=== PATIENT | female | born 1990 | race Two or more races ===

== ENCOUNTER → 2022-10-06 | Outpatient (REF) | LOC: M EMP 14:14 | PROVIDERS: ATTEND Family Medicine | DX: Z20.822 Contact with and (suspected) exposure to COVID-19 (principal) ==

== ENCOUNTER 2023-02-15 02:44 | Emergency (ER) | payer OTHER ==
[~2023-02-15] VITALS: Ht 157.5 cm; Wt 92.2 kg
[2023-02-15 03:27] LABS: HEMATOCRIT 38.3 % (36.0-47.0); HEMOGLOBIN 12.5 g/dl (12.0-15.5); MEAN CORPUSCULAR HEMOGLOBIN 27.2 pg (27.0-33.0); MEAN CORPUSCULAR HGB CONC 32.6 g/dl (32.0-36.5); MEAN CORPUSCULAR VOLUME 83.4 fl (80.0-96.0); PLATELET COUNT, AUTOMATED 272 10^3/uL (150-450); RED BLOOD COUNT 4.59 10^6/uL (4.00-5.40); WHITE BLOOD COUNT 7.1 10^3/uL (4.0-10.0)
[2023-02-15 03:44] LABS: AMPHETAMINES LEVEL URINE NEGATIVE (NEGATIVE); BARBITURATES URINE NEGATIVE (NEGATIVE); BENZODIAZEPINES URINE NEGATIVE (NEGATIVE)
[2023-02-15 03:45] LABS: CANNABINOIDS URINE NEGATIVE (NEGATIVE); COCAINE METABOLITE URINE NEGATIVE (NEGATIVE); METHADONE URINE NEGATIVE (NEGATIVE); OPIATES URINE NEGATIVE (NEGATIVE); PHENCYCLIDINE URINE NEGATIVE (NEGATIVE)
[2023-02-15 03:49] LABS: ACETAMINOPHEN LEVEL < 2.0 UG/ML (10.0-20.0); ALBUMIN 3.6 G/DL (3.2-5.2); ALKALINE PHOSPHATASE 83 U/L (46-116); ALT/SGPT 68 U/L (7.0-40); AST/SGOT 123 U/L (<34); BILIRUBIN,DIRECT < 0.1 MG/DL (<0.4); BILIRUBIN,TOTAL 0.3 MG/DL (0.3-1.2); BLOOD UREA NITROGEN 8 MG/DL (9-23); CALCIUM LEVEL 8.2 MG/DL (8.5-10.1); CARBON DIOXIDE LEVEL 20 MMOL/L (20-31); CHLORIDE LEVEL 111 MMOL/L (98-107); CREATININE FOR GFR 0.61 MG/DL (0.55-1.30); GLOMERULAR FILTRATION RATE > 60.0 (>60); GLUCOSE, FASTING 95 MG/DL (60-100); POTASSIUM SERUM 3.6 MMOL/L (3.5-5.1); SALICYLATE LEVEL < 3.0 MG/DL (<30); SODIUM LEVEL 142 MMOL/L (136-145); TOTAL PROTEIN 6.7 G/DL (5.7-8.2)
[2023-02-15 03:51] LABS: THYROID STIMULATING HORMONE 1.252 uIU/ML (0.55-4.78)
[2023-02-15 04:03] LABS: HCG, SERUM QUALITATIVE NEGATIVE (NEGATIVE)
[2023-02-15 06:17] VITALS: BP 112/56; TEMP 96.3; O2SAT 99
== END 2023-02-15 11:49 | disposition home or self-care (01) ==
LOC: M ED 02:44
DX: F10.129 Alcohol abuse with intoxication, unspecified (principal); F32.A Depression, unspecified; F43.10 Post-traumatic stress disorder, unspecified; F41.9 Anxiety disorder, unspecified; F17.290 Nicotine dependence, other tobacco product, uncomplicated; Z88.0 Allergy status to penicillin; Z88.8 Allergy status to other drugs, medicaments and biological substances

== ENCOUNTER 2023-11-24 09:20 | Emergency (ER) | payer OTHER ==
[~2023-11-24] VITALS: Ht 157.5 cm; Wt 90.7 kg
[2023-11-24] MEDS ORDERED: ALPR0.25 (09:41)
[2023-11-24] MEDS ORDERED: TRAZ-252 (09:41)
[2023-11-24] MEDS ORDERED: DEXTROAMP-AMPHETAMIN (09:41)
[2023-11-24] MEDS ORDERED: SERT50TA29 (09:41)
[2023-11-24] MEDS ORDERED: ACAM0.05 (09:41)
[2023-11-24] MEDS ORDERED: NALT50TA4 (09:41)
[2023-11-24 10:36] LABS: HEMATOCRIT 41.9 % (36.0-47.0); HEMOGLOBIN 14.1 g/dl (12.0-15.5); MEAN CORPUSCULAR HEMOGLOBIN 30.4 pg (27.0-33.0); MEAN CORPUSCULAR HGB CONC 33.7 g/dl (32.0-36.5); MEAN CORPUSCULAR VOLUME 90.3 fl (80.0-96.0); PLATELET COUNT, AUTOMATED 278 10^3/uL (150-450); RED BLOOD COUNT 4.64 10^6/uL (4.00-5.40); WHITE BLOOD COUNT 8.2 10^3/uL (4.0-10.0)
[2023-11-24 10:57] LABS: LIPASE 27 U/L (12-53)
[2023-11-24 10:59] LABS: ALBUMIN 3.5 G/DL (3.2-5.2); ALKALINE PHOSPHATASE 70 U/L (46-116); ALT/SGPT 21 U/L (7.0-40); AST/SGOT 16 U/L (<34); BILIRUBIN,DIRECT 0.2 MG/DL (<0.4); BILIRUBIN,TOTAL 0.6 MG/DL (0.3-1.2); BLOOD UREA NITROGEN 9 MG/DL (9-23); CALCIUM LEVEL 8.6 MG/DL (8.5-10.1); CARBON DIOXIDE LEVEL 25 MMOL/L (20-31); CHLORIDE LEVEL 107 MMOL/L (98-107); CREATININE FOR GFR 0.54 MG/DL (0.55-1.30); GLOMERULAR FILTRATION RATE > 60.0 (>60); GLUCOSE, FASTING 79 MG/DL (60-100); POTASSIUM SERUM 3.9 MMOL/L (3.5-5.1); SODIUM LEVEL 137 MMOL/L (136-145); TOTAL PROTEIN 6.7 G/DL (5.7-8.2)
[2023-11-24 11:13] LABS: HCG, SERUM QUANTITATIVE 20615.7 MIU/ML (<4.2)
[2023-11-24 11:15] LABS: APPEARANCE, URINE HAZY (CLEAR); BACTERIA, URINE AUTO NEGATIVE (NEGATIVE); BILIRUBIN, URINE AUTO NEGATIVE (NEGATIVE); BLOOD, URINE BLOOD NEGATIVE (NEGATIVE); COLOR, URINE AMBER (YELLOW); GLUCOSE, URINE (UA) AUTO NEGATIVE (NEGATIVE); KETONE, URINE AUTO TRACE mg/dL (NEGATIVE); LEUKOCYTE ESTERASE, URINE AUTO TRACE (NEGATIVE); MUCUS, URINE LARGE (NEGATIVE); NITRITE, URINE AUTO NEGATIVE (NEGATIVE); PROTEIN, URINE AUTO 1+ mg/dL (NEGATIVE); RBC, URINE AUTO 0 /HPF (0-3); SPECIFIC GRAVITY URINE AUTO 1.031 (1.002-1.035); SQUAMOUS EPITHELIAL CELL UR AU 3 /HPF (0-6); WBC, URINE AUTO 5 /HPF (0-3)
[2023-11-24] MEDS: ACETAMINOPHEN 325 MG TAB PO ONE (11:30)
[2023-11-24 12:54] VITALS: BP 122/78; TEMP 97; O2SAT 99
== END 2023-11-24 13:25 | disposition home or self-care (01) ==
LOC: M ED 09:20
DX: O20.8 Other hemorrhage in early pregnancy (principal); Z3A.01 Less than 8 weeks gestation of pregnancy; Z87.59 Personal history of other complications of pregnancy, childbirth and the puerperium; O99.841 Bariatric surgery status complicating pregnancy, first trimester; O34.81 Maternal care for other abnormalities of pelvic organs, first trimester; Z88.0 Allergy status to penicillin

== ENCOUNTER 2023-12-07 00:44 | Emergency (ER) | payer OTHER ==
[~2023-12-07] VITALS: Ht 157.5 cm; Wt 90.9 kg
[~2023-12-07 00:44] MED LIST: ACAM0.05; ALPR0.25; DEXTROAMP-AMPHETAMIN; NALT50TA4; SERT50TA29; TRAZ-252
[2023-12-07 01:18] LABS: BASO % 0.3 % (0.0-1.0); EOS % 0.1 % (0.0-3.0); HEMOGLOBIN 14.1 g/dl (12.0-15.5); LYMPH # 1.9 10^3/uL (1.5-5.0); MEAN CORPUSCULAR HEMOGLOBIN 31.1 pg (27.0-33.0); MEAN CORPUSCULAR HGB CONC 34.4 g/dl (32.0-36.5); MEAN CORPUSCULAR VOLUME 90.5 fl (80.0-96.0); MONO # 0.5 10^3/uL (0.0-0.8); MONO % 4.3 % (2.0-8.0); NEUTROPHILS # 9.2 10^3/uL (1.5-8.5); NEUTROPHILS % 78.8 % (36.0-66.0); PLATELET COUNT, AUTOMATED 207 10^3/uL (150-450); RED BLOOD COUNT 4.53 10^6/uL (4.00-5.40); WHITE BLOOD COUNT 11.7 10^3/uL (4.0-10.0)
[2023-12-07 01:30] VITALS: TEMP 97.8
[2023-12-07 01:35] LABS: INR 1.12
[2023-12-07 01:44] LABS: LIPASE 32 U/L (12-53)
[2023-12-07 01:47] LABS: ALBUMIN 3.4 G/DL (3.2-5.2); ALKALINE PHOSPHATASE 64 U/L (46-116); ALT/SGPT 20 U/L (7.0-40); AST/SGOT 33 U/L (<34); BILIRUBIN,DIRECT < 0.1 MG/DL (<0.4); BILIRUBIN,TOTAL 0.3 MG/DL (0.3-1.2); BLOOD UREA NITROGEN 9 MG/DL (9-23); CALCIUM LEVEL 8.9 MG/DL (8.5-10.1); CARBON DIOXIDE LEVEL 23 MMOL/L (20-31); CHLORIDE LEVEL 103 MMOL/L (98-107); CK-MB VALUE MASS < 1.0 NG/ML (<3.6); CREATININE FOR GFR 0.49 MG/DL (0.55-1.30); GLOMERULAR FILTRATION RATE > 60.0 (>60); GLUCOSE, FASTING 128 MG/DL (60-100); POTASSIUM SERUM 3.5 MMOL/L (3.5-5.1); SODIUM LEVEL 136 MMOL/L (136-145); TOTAL PROTEIN 6.7 G/DL (5.7-8.2)
[2023-12-07 01:54] LABS: RSV AMPLIFICATION NEGATIVE (NEGATIVE)
[2023-12-07 02:12] LABS: CPK CREATINE PHOSPHOKINASE 113 U/L (34-145); HCG, SERUM QUANTITATIVE 121662.1 MIU/ML (<4.2); MB/CK RELATIVE INDEX 0.88 (< OR =4)
[2023-12-07 03:00] VITALS: BP 97/66; O2SAT 99
== END 2023-12-07 03:27 | disposition home or self-care (01) ==
LOC: M ED 00:44
DX: O34.81 Maternal care for other abnormalities of pelvic organs, first trimester (principal); N83.291 Other ovarian cyst, right side; O26.891 Other specified pregnancy related conditions, first trimester; M62.830 Muscle spasm of back; I45.10 Unspecified right bundle-branch block; J45.909 Unspecified asthma, uncomplicated; F90.9 Attention-deficit hyperactivity disorder, unspecified type; Z98.84 Bariatric surgery status; Z88.1 Allergy status to other antibiotic agents; Z79.899 Other long term (current) drug therapy; Z3A.01 Less than 8 weeks gestation of pregnancy

== ENCOUNTER 2023-12-18 10:52 | Emergency (ER) | payer OTHER ==
[~2023-12-18] VITALS: Ht 157.5 cm; Wt 90.0 kg
[2023-12-18] MEDS ORDERED: APAP325T4 PO (11:17)
[2023-12-18] MEDS ORDERED: VITACAP37 PO (11:17)
[2023-12-18] MEDS ORDERED: CLEO150C PO (11:17)
[2023-12-18] MEDS ORDERED: TOLN1CRE9 TOP (11:17)
[2023-12-18] MEDS ORDERED: TRAZ-252 PO (11:17)
[2023-12-18] MEDS ORDERED: FERR325T3 PO (11:17)
[2023-12-18] MEDS ORDERED: FOLI1TAB11 PO (11:17)
[2023-12-18] MEDS ORDERED: PROA1AER2 INH (11:17)
[2023-12-18] MEDS ORDERED: FLON1SPR NARES (11:17)
[2023-12-18] MEDS ORDERED: ARIP1TAB PO (11:17)
[2023-12-18] MEDS ORDERED: HYDR-3363 PO (11:17)
[2023-12-18 12:19] LABS: BASO % 0.3 % (0.0-1.0); EOS % 0.2 % (0.0-3.0); HEMATOCRIT 42.8 % (36.0-47.0); HEMOGLOBIN 14.4 g/dl (12.0-15.5); LYMPH # 1.4 10^3/uL (1.5-5.0); LYMPH % 15.8 % (24.0-44.0); MEAN CORPUSCULAR HEMOGLOBIN 30.3 pg (27.0-33.0); MEAN CORPUSCULAR HGB CONC 33.6 g/dl (32.0-36.5); MEAN CORPUSCULAR VOLUME 90.1 fl (80.0-96.0); MONO # 0.4 10^3/uL (0.0-0.8); MONO % 3.9 % (2.0-8.0); NEUTROPHILS # 7.1 10^3/uL (1.5-8.5); NEUTROPHILS % 79.5 % (36.0-66.0); PLATELET COUNT, AUTOMATED 274 10^3/uL (150-450); RED BLOOD COUNT 4.75 10^6/uL (4.00-5.40); WHITE BLOOD COUNT 8.9 10^3/uL (4.0-10.0)
[2023-12-18 12:41] LABS: BLOOD UREA NITROGEN 9 MG/DL (9-23); CALCIUM LEVEL 9.8 MG/DL (8.5-10.1); CARBON DIOXIDE LEVEL 24 MMOL/L (20-31); CHLORIDE LEVEL 104 MMOL/L (98-107); CREATININE FOR GFR 0.53 MG/DL (0.55-1.30); GLOMERULAR FILTRATION RATE > 60.0 (>60); GLUCOSE, FASTING 79 MG/DL (60-100); POTASSIUM SERUM 5.1 MMOL/L (3.5-5.1); SODIUM LEVEL 136 MMOL/L (136-145)
[2023-12-18 13:23] LABS: HCG, SERUM QUANTITATIVE 151175.9 MIU/ML (<4.2)
[2023-12-18 15:08] VITALS: BP 107/70; TEMP 98.2; O2SAT 100
[2023-12-18] MEDS: FOSFOMYCIN TROMETHAMINE 3 GM POWDER PACKET (MONUROL) PO ONE (15:17)
== END 2023-12-18 15:22 | disposition home or self-care (01) ==
LOC: M ED 10:52
DX: O34.41 Maternal care for other abnormalities of cervix, first trimester (principal); O23.41 Unspecified infection of urinary tract in pregnancy, first trimester; O34.81 Maternal care for other abnormalities of pelvic organs, first trimester; Z3A.09 9 weeks gestation of pregnancy; Z87.59 Personal history of other complications of pregnancy, childbirth and the puerperium; O99.841 Bariatric surgery status complicating pregnancy, first trimester; Z88.0 Allergy status to penicillin

== ENCOUNTER → 2024-01-12 | Outpatient (CLI) | payer OTHER ==
[~2024-01-12] MED LIST changes: +APAP325T4 PO; +ARIP1TAB PO; +CLEO150C PO; +FERR325T3 PO; +FLON1SPR NARES; +FOLI1TAB11 PO; +HYDR-3363 PO; +PROA1AER2 INH; +TOLN1CRE9 TOP; +TRAZ-252 PO; +VITACAP37 PO
[2024-01-12 12:41] LABS: HEMOGLOBIN 13.2 g/dl (12.0-15.5); MEAN CORPUSCULAR HEMOGLOBIN 30.7 pg (27.0-33.0); MEAN CORPUSCULAR HGB CONC 33.8 g/dl (32.0-36.5); MEAN CORPUSCULAR VOLUME 90.7 fl (80.0-96.0); PLATELET COUNT, AUTOMATED 228 10^3/uL (150-450); WHITE BLOOD COUNT 9.2 10^3/uL (4.0-10.0)
[2024-01-12 13:11] LABS: IRON (FE) 74 UG/DL (50-170); TOTAL 25(OH) VITAMIN D 14.7 NG/ML (20.0-100.0)
[2024-01-12 13:13] LABS: FOLATE 18.12 NG/ML (>5.4)
[2024-01-12 13:14] LABS: VITAMIN B12 LEVEL 367 PG/ML (211-911)
[2024-01-12 13:20] LABS: HEMOGLOBIN A1c 4.4 % (4.0-6.0)
[2024-01-12 13:35] LABS: HIV 1&2 SCREEN NEGATIVE (NEGATIVE)
[2024-01-12 13:44] LABS: HEPATITIS C VIRUS ABY INDEX < 0.02 INDEX (<0.8)
[2024-01-12 14:14] LABS: GC DNA AMPLIFICATION NEGATIVE (NEGATIVE)
== END ==
LOC: M PLALAB 11:00
PROVIDERS: ATTEND Advanced Practice Midwife
DX: O99.612 Diseases of the digestive system complicating pregnancy, second trimester (principal); K90.9 Intestinal malabsorption, unspecified; Z3A.00 Weeks of gestation of pregnancy not specified

== ENCOUNTER 2024-02-03 13:04 | Emergency (ER) | payer OTHER ==
[~2024-02-03] VITALS: Ht 157.5 cm; Wt 91.4 kg
[2024-02-03] MEDS ORDERED: FERR325T3 PO (13:19)
[2024-02-03] MEDS ORDERED: CIPR-250 PO (13:20)
[2024-02-03 14:01] LABS: BASO % 0.2 % (0.0-1.0); EOS % 0.1 % (0.0-3.0); HEMATOCRIT 35.6 % (36.0-47.0); HEMOGLOBIN 12.3 g/dl (12.0-15.5); LYMPH # 1.8 10^3/uL (1.5-5.0); LYMPH % 18.3 % (24.0-44.0); MEAN CORPUSCULAR HEMOGLOBIN 31.5 pg (27.0-33.0); MEAN CORPUSCULAR HGB CONC 34.6 g/dl (32.0-36.5); MEAN CORPUSCULAR VOLUME 91.3 fl (80.0-96.0); MONO # 0.5 10^3/uL (0.0-0.8); MONO % 4.8 % (2.0-8.0); NEUTROPHILS # 7.4 10^3/uL (1.5-8.5); NEUTROPHILS % 75.8 % (36.0-66.0); PLATELET COUNT, AUTOMATED 206 10^3/uL (150-450); WHITE BLOOD COUNT 9.8 10^3/uL (4.0-10.0)
[2024-02-03 14:30] LABS: BLOOD UREA NITROGEN 6 MG/DL (9-23); CALCIUM LEVEL 8.5 MG/DL (8.5-10.1); CARBON DIOXIDE LEVEL 21 MMOL/L (20-31); CHLORIDE LEVEL 110 MMOL/L (98-107); CREATININE FOR GFR 0.49 MG/DL (0.55-1.30); GLOMERULAR FILTRATION RATE > 60.0 (>60); GLUCOSE, FASTING 76 MG/DL (60-100); POTASSIUM SERUM 4.3 MMOL/L (3.5-5.1); SODIUM LEVEL 140 MMOL/L (136-145)
[2024-02-03] MEDS: NS 1,000 ML IV ONE (16:05)
[2024-02-03] MEDS: ACETAMINOPHEN *IV* 1,000 MG in IV 1 EA IV ONE (16:06)
[2024-02-03] MEDS ORDERED: CEPH500T PO (17:21)
[2024-02-03 18:05] VITALS: BP 107/67; TEMP 98.5; O2SAT 98
== END 2024-02-03 18:22 | disposition home or self-care (01) ==
LOC: M ED 13:04
DX: N39.0 Urinary tract infection, site not specified (principal); N83.201 Unspecified ovarian cyst, right side; F90.9 Attention-deficit hyperactivity disorder, unspecified type; J45.909 Unspecified asthma, uncomplicated; Z79.899 Other long term (current) drug therapy; Z88.0 Allergy status to penicillin
CPT/HCPCS: 76775; 76815; 80048; 81001; 85025; 87086; 96365; 96366; 99284; J0131

== ENCOUNTER 2024-02-08 11:20 | Emergency (ER) | payer OTHER ==
[~2024-02-08] VITALS: Ht 157.5 cm; Wt 91.0 kg
[~2024-02-08 11:20] MED LIST changes: +CEPH500T PO; +CIPR-250 PO
[2024-02-08 12:07] LABS: BASO % 0.2 % (0.0-1.0); EOS % 0.2 % (0.0-3.0); HEMATOCRIT 36.7 % (36.0-47.0); HEMOGLOBIN 12.8 g/dl (12.0-15.5); LYMPH # 1.7 10^3/uL (1.5-5.0); LYMPH % 17.7 % (24.0-44.0); MEAN CORPUSCULAR HEMOGLOBIN 31.8 pg (27.0-33.0); MEAN CORPUSCULAR HGB CONC 34.9 g/dl (32.0-36.5); MEAN CORPUSCULAR VOLUME 91.3 fl (80.0-96.0); MONO # 0.4 10^3/uL (0.0-0.8); MONO % 4.5 % (2.0-8.0); NEUTROPHILS # 7.5 10^3/uL (1.5-8.5); NEUTROPHILS % 76.6 % (36.0-66.0); PLATELET COUNT, AUTOMATED 222 10^3/uL (150-450); RED BLOOD COUNT 4.02 10^6/uL (4.00-5.40); WHITE BLOOD COUNT 9.8 10^3/uL (4.0-10.0)
[2024-02-08 12:27] LABS: BLOOD UREA NITROGEN 8 MG/DL (9-23); CARBON DIOXIDE LEVEL 24 MMOL/L (20-31); CHLORIDE LEVEL 106 MMOL/L (98-107); CREATININE FOR GFR 0.46 MG/DL (0.55-1.30); GLOMERULAR FILTRATION RATE > 60.0 (>60); GLUCOSE, FASTING 76 MG/DL (60-100); POTASSIUM SERUM 4.2 MMOL/L (3.5-5.1); SODIUM LEVEL 137 MMOL/L (136-145)
[2024-02-08 12:42] LABS: HCG, SERUM QUANTITATIVE 22644.5 MIU/ML (<4.2)
[2024-02-08] MEDS: ACETAMINOPHEN TAB 650MG DOSE (2X325MG) PO ONE (12:54)
[2024-02-08 13:12] VITALS: BP 106/61; TEMP 96.8; O2SAT 100
== END 2024-02-08 13:14 | disposition home or self-care (01) ==
LOC: M ED 11:20
DX: O20.9 Hemorrhage in early pregnancy, unspecified (principal); Z98.84 Bariatric surgery status; Z88.1 Allergy status to other antibiotic agents; Z79.52 Long term (current) use of systemic steroids; Z79.899 Other long term (current) drug therapy

== ENCOUNTER → 2024-03-09 | Outpatient (CLI) | payer OTHER | LOC: M RAD 15:38 | PROVIDERS: ATTEND Family Medicine | DX: Z36.2 Encounter for other antenatal screening follow-up (principal); Z3A.21 21 weeks gestation of pregnancy ==

== ENCOUNTER 2024-03-19 14:59 | Outpatient (CLI) | payer OTHER ==
[~2024-03-19] VITALS: Ht 157.5 cm; Wt 95.3 kg
[2024-03-19 15:21] VITALS: BP 110/64
[2024-03-19] MEDS ORDERED: NOXI1TAB PO (16:07)
[2024-03-19] MEDS ORDERED: FLUT1INH2 INH (16:07)
[2024-03-19] MEDS ORDERED: HOME MED LIST COMPLETE! XX SCH (16:10)
[2024-03-19 16:11] LABS: APPEARANCE, URINE HAZY (CLEAR); BACTERIA, URINE AUTO NEGATIVE (NEGATIVE); BILIRUBIN, URINE AUTO NEGATIVE (NEGATIVE); BLOOD, URINE BLOOD 3+ (NEGATIVE); COLOR, URINE YELLOW (YELLOW); GLUCOSE, URINE (UA) AUTO NEGATIVE (NEGATIVE); KETONE, URINE AUTO NEGATIVE (NEGATIVE); LEUKOCYTE ESTERASE, URINE AUTO NEGATIVE (NEGATIVE); MUCUS, URINE SMALL (NEGATIVE); NITRITE, URINE AUTO NEGATIVE (NEGATIVE); PROTEIN, URINE AUTO NEGATIVE (NEGATIVE); RBC, URINE AUTO 0 /HPF (0-3); SQUAMOUS EPITHELIAL CELL UR AU 3 /HPF (0-6); UROBILINOGEN, URINE AUTO 0.2 mg/dL (0.0-2.0); WBC, URINE AUTO 2 /HPF (0-3)
== END 2024-03-19 16:28 | disposition home or self-care (01) ==
LOC: M LDO 14:59
PROVIDERS: ATTEND Specialist
DX: O26.852 Spotting complicating pregnancy, second trimester (principal); O26.892 Other specified pregnancy related conditions, second trimester; R10.10 Upper abdominal pain, unspecified; Z3A.22 22 weeks gestation of pregnancy
CPT/HCPCS: 59025; 76815; 81001; G0463

== ENCOUNTER 2024-04-01 11:24 | Outpatient (CLI) | payer OTHER ==
[~2024-04-01] VITALS: Ht 157.5 cm; Wt 98.0 kg
[~2024-04-01 11:24] MED LIST changes: +FLUT1INH2 INH; +NOXI1TAB PO
[2024-04-01] MEDS ORDERED: HOME MED LIST COMPLETE! XX SCH (14:45)
== END 2024-04-01 13:28 | disposition home or self-care (01) ==
LOC: M LDO 11:24
PROVIDERS: ATTEND Advanced Practice Midwife
DX: O26.852 Spotting complicating pregnancy, second trimester (principal); O26.892 Other specified pregnancy related conditions, second trimester; R25.2 Cramp and spasm; Z3A.24 24 weeks gestation of pregnancy
CPT/HCPCS: 59025; G0463

== ENCOUNTER → 2024-04-11 | Outpatient (CLI) | payer OTHER | LOC: M RAD 08:26 | PROVIDERS: ATTEND Physician Assistant Medical | DX: O26.92 Pregnancy related conditions, unspecified, second trimester (principal); Z3A.26 26 weeks gestation of pregnancy ==

== ENCOUNTER 2024-06-06 23:34 | Outpatient (CLI) | payer OTHER ==
[~2024-06-06] VITALS: Ht 157.5 cm; Wt 216.0 kg
[2024-06-07 00:07] VITALS: BP 82/53
[2024-06-07 00:22] VITALS: BP 88/53
[2024-06-07] MEDS ORDERED: MONT10TA97 PO (00:26)
[2024-06-07] MEDS ORDERED: ENSULIQ51 PO (00:26)
[2024-06-07] MEDS ORDERED: NYST1POW9 TOP (00:26)
[2024-06-07] MEDS ORDERED: ALBU8.5H INH (00:26)
[2024-06-07] MEDS ORDERED: REGL5TAB2 PO (00:26)
[2024-06-07] MEDS ORDERED: EQL50TAB2 PO (00:26)
[2024-06-07] MEDS ORDERED: TUMS750C22 PO (00:26)
[2024-06-07] MEDS ORDERED: ACET1TAB55 PO (00:26)
[2024-06-07] MEDS ORDERED: HOME MED LIST COMPLETE! XX SCH (00:30)
[2024-06-07 00:37] VITALS: BP 110/66
[2024-06-07 01:02] LABS: APPEARANCE, URINE CLEAR (CLEAR); BACTERIA, URINE AUTO 1+ (NEGATIVE); BILIRUBIN, URINE AUTO NEGATIVE (NEGATIVE); BLOOD, URINE BLOOD NEGATIVE (NEGATIVE); COLOR, URINE STRAW (YELLOW); GLUCOSE, URINE (UA) AUTO NEGATIVE (NEGATIVE); KETONE, URINE AUTO NEGATIVE (NEGATIVE); LEUKOCYTE ESTERASE, URINE AUTO NEGATIVE (NEGATIVE); NITRITE, URINE AUTO NEGATIVE (NEGATIVE); PROTEIN, URINE AUTO NEGATIVE (NEGATIVE); RBC, URINE AUTO 1 /HPF (0-3); SPECIFIC GRAVITY URINE AUTO 1.005 (1.002-1.035); SQUAMOUS EPITHELIAL CELL UR AU 1 /HPF (0-6); UROBILINOGEN, URINE AUTO 0.2 mg/dL (0.0-2.0); WBC, URINE AUTO 1 /HPF (0-3)
[2024-06-07 01:22] VITALS: BP 93/55
[2024-06-07 01:57] LABS: HEMATOCRIT 34.2 % (36.0-47.0); HEMOGLOBIN 11.8 g/dl (12.0-15.5); MEAN CORPUSCULAR HEMOGLOBIN 32.5 pg (27.0-33.0); MEAN CORPUSCULAR HGB CONC 34.5 g/dl (32.0-36.5); MEAN CORPUSCULAR VOLUME 94.2 fl (80.0-96.0); PLATELET COUNT, AUTOMATED 180 10^3/uL (150-450); RED BLOOD COUNT 3.63 10^6/uL (4.00-5.40); WHITE BLOOD COUNT 10.7 10^3/uL (4.0-10.0)
[2024-06-07 02:11] LABS: ALBUMIN 2.4 G/DL (3.2-5.2); ALKALINE PHOSPHATASE 105 U/L (46-116); ALT/SGPT 29 U/L (7.0-40); AST/SGOT 23 U/L (<34); BILIRUBIN,TOTAL 0.5 MG/DL (0.3-1.2); BLOOD UREA NITROGEN < 5 MG/DL (9-23); CALCIUM LEVEL 8.6 MG/DL (8.5-10.1); CARBON DIOXIDE LEVEL 24 MMOL/L (20-31); CHLORIDE LEVEL 107 MMOL/L (98-107); CREATININE FOR GFR 0.47 MG/DL (0.55-1.30); GLOMERULAR FILTRATION RATE > 60.0 (>60); GLUCOSE, FASTING 76 MG/DL (60-100); POTASSIUM SERUM 3.7 MMOL/L (3.5-5.1); SODIUM LEVEL 136 MMOL/L (136-145); TOTAL PROTEIN 5.8 G/DL (5.7-8.2)
[2024-06-07] MEDS: ACETAMINOPHEN TAB 650MG DOSE (2X325MG) PO ONE (03:26)
== END 2024-06-07 03:38 | disposition home or self-care (01) ==
LOC: M LDO 23:34
PROVIDERS: ATTEND Advanced Practice Midwife
DX: O26.893 Other specified pregnancy related conditions, third trimester (principal); O26.853 Spotting complicating pregnancy, third trimester; O09.523 Supervision of elderly multigravida, third trimester; O99.343 Other mental disorders complicating pregnancy, third trimester; O99.843 Bariatric surgery status complicating pregnancy, third trimester; O34.219 Maternal care for unspecified type scar from previous cesarean delivery; R10.2 Pelvic and perineal pain; F41.9 Anxiety disorder, unspecified; F32.9 Major depressive disorder, single episode, unspecified; Z3A.34 34 weeks gestation of pregnancy
CPT/HCPCS: 36415; 59025; 76815; 76817; 76820; 80053; 81001; 85027; 87070; 87077; G0463

== ENCOUNTER → 2024-06-09 | Outpatient (CLI) | payer OTHER ==
[~2024-06-09] MED LIST changes: +ACET1TAB55 PO; +ALBU8.5H INH; +ENSULIQ51 PO; +EQL50TAB2 PO; +MONT10TA97 PO; +NYST1POW9 TOP; +REGL5TAB2 PO; +TUMS750C22 PO
== END ==
LOC: M WHC 13:16
PROVIDERS: ATTEND Physician Assistant Medical
DX: Z36.87 Encounter for antenatal screening for uncertain dates (principal); Z3A.34 34 weeks gestation of pregnancy